=== PATIENT | male | born 1950 | race Caucasian/White ===

== ENCOUNTER 2018-07-30 13:00 | Oncology outpatient (ONC) | payer MEDICARE, OTHER, SELFPAY ==
--- NOTE | 2018-04-01 14:14 | ONC.NAV ---
Description: New Pt Intro Activity: Met briefly with pt/dtr prior to their initial ONC consult visit with Dr. Javed. Discussed resources and support available here at [facility], and provided my services card. Agreed to meet with pt again once he is back in the clinic for f/u.
[2018-04-01 15:21] VITALS: BP 126/66; PULSE 91; RESP 15; TEMP 37; O2SAT 98
--- NOTE | 2018-04-02 10:31 | ONC.GENERIC ---
Diagnosis (1) Malignant melanoma Diagnosis: 04/02/18 10:32 Mr. Alfredo is a very pleasant 67-year-old twice male from [place], [place]. He is accompanied today by his daughter Paulette and his 5-year-old son Obdulio. He has been referred by Dr. Brannon for postop triage of recently confirmed malignant melanoma, juxtaposition to the left parotid gland. 04/02/18 10:48 History of Present Illness History Of Present Illness: 04/02/18 10:49 This gentleman reports that his present illness began last fall, when he began to have some left ear difficulties. He was ultimately seen in triage by Dr. Marie, an ENT colleague, on 10/16/2017. The patient made note of ongoing tinnitus, left neck pain and intermittent headaches. Mass effect was perceived in the area of the left parotid gland. On 10/21/2017, the patient had a CT scan of his neck. It confirmed an enlarged lymph node, at the inferior aspect of the left parotid gland, measuring 14 x 15 x 23 mm in diameter. The following week, a FNA was attempted, but reportedly was nondiagnostic. On 12/31/2017, the patient was taken to the operating room by Drs. Brannon and Frank, for an excisional biopsy. Intraoperative findings reported a 2.5 cm irregular, solid mass abutting the left parotid tail. 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 On 01/09/2018, the patient was seen in formal consultation by Brianna Tello MD, an ENT oncologic surgeon at [facility]. The case was then presented at the [facility] Tumor Board. It was recommended that the patient undergo a left-sided superficial parotidectomy and left neck dissection. On 01/14/2018, the patient had a PET scan obtained, which showed very minimal FDG activity in the biopsy site. There was no other evidence of metastatic disease. On 03/10/2018, the patient was again taken to the operating room by Dr. Brannon, where the patient underwent a left superficial parotidectomy and left neck dissection. Final pathology revealed the parotid gland without pathologic alterations. Four periparotid lymph nodes were negative for metastatic melanoma. Fifteen level 2 left neck nodes were negative for metastatic disease. Thirteen level 3 left neck nodes were negative for metastatic disease. Postoperatively, the patient has noted some refractory xerostomia and left upper extremity weakness. He is referred today by Dr. Brannon for formal medical oncologic consultation. This gentleman's past medical history is pertinent for excision of melanoma in situ from his left ear (helix) on 08/12/2015. Home Medications and Allergies Home Medications Medication Instructions Recorded Confirmed Type glipizide 10 mg PO DAILY 04/01/18 04/01/18 History ibuprofen 200 mg PO Q6-8H PRN 04/01/18 04/01/18 History loperamide 2 mg PO Q2-4H PRN 04/01/18 04/01/18 History sitagliptin-metformin [Janumet] 1 tab PO BID 04/01/18 04/01/18 History terazosin 5 mg PO DAILY 04/01/18 04/01/18 History Allergies Allergy/AdvReac Type Severity Reaction Status Date / Time amoxicillin Allergy Mild Rash Verified 04/01/18 14:50 Penicillins Allergy Mild Rash Verified 04/01/18 14:50 Sulfa (Sulfonamide Allergy Mild Rash Verified 04/01/18 14:50 Antibiotics) Past History Past Medical History: Excision of melanoma in situ from the left ear on 08/12/2015. Diabetes mellitus, under good management. His serum glucose's normally run between 90 and 110. A recent hemoglobin A1c level was 7.2. Multiple skin cancers have been previously excised. Social History: Mr. Alfredo has been twice. He has 2 children with his current 48-year-old ; Paulette who is 24 and Obdulio who is 5. He has 3 other grown children from his 1st marriage. He served for 24 years in the [employer]. He is now retired. He lives with his family in [place], [place] Family History: The patient's father from heart attack at age 74. His mother of natural causes at age 90. Patient had 2 brothers and 2 sisters. One brother is from a stroke. A sister from liver disease. Review of Systems Review of Systems: 1. General. Recent diminution in both appetite and weight. He estimates a weight loss of about 10 lb. He denies any recent fever chills or night sweats. 2. HEENT. See present illness. This gentleman wears glasses. He reports difficulty with both chronic tinnitus and visual floaters. He has had xerostomia since his surgery. Cough or shortness of breath.. 3. Lungs. No recent complaints of cough or shortness of breath. 4. Heart. Unremarkable. 5. GI. Prior history of a gastric ulcer. No history of hepatitis or gallbladder disease. 6. . Unremarkable. 7. Rheumatologic. Minimal complaints. 8. Endocrine. Diabetes mellitus. No history of thyroid disease. 9. Skin. See present illness. 10. Neurologic. The patient has noted left arm and hand weakness since his surgery in March. Exam Vital Signs: Vital Signs - 24 hr 04/01/18 15:21 Temperature 98.6 F Pulse Rate 91 H Respiratory Rate 15 Blood Pressure 126/66 H Pulse Oximetry 98 Exam: Blood pressure 126/66. Temperature 98.6?. Pulse rate 91. O2 saturation on room air was 98%. Weight 191 lb. The pupils were equal and reactive to light. The oropharynx was clear. There was physical distortion of this gentleman's left helix. He had a long/vertical left-sided neck resection wound as well as a 2nd wound overlying his left parotid gland area. No pathologic lymphadenopathy was noted today in the right pre or postauricular area, right neck, submental, supraclavicular or axillary areas. Both lungs were clear to auscultation and percussion. There was no direct percussible spinal tenderness. There was no palpable rib cage tenderness. Heart sounds were fine. The abdomen was soft, nontender and without palpable organomegaly. There was no lower extremity edema. Skin examination showed no disconcerning lesions. 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 His tumor has been completely resected. His left neck dissection showed no evidence of further metastatic disease. Postoperatively, this gentleman is currently plagued with some residual xerostomia and left upper extremity weakness. I would note that his recent PET scan showed no evidence of metastatic disease elsewhere. I would note that these particular tumors generally have a lower metastatic potential compared with more conventional melanomas. I would like to procure a formal RT consultation with 1 of my colleagues in [place]. I will request follow-up in this clinic in 4 months.
--- NOTE | 2018-04-02 10:48 | P.CONONC_ITS ---
Diagnosis (1) Malignant melanoma Diagnosis: 04/02/18 10:32 Mr. Alfredo is a very pleasant 67-year-old twice male from [place], [place]. He is accompanied today by his daughter Paulette and his 5-year-old son Obdulio. He has been referred by Dr. Brannon for postop triage of recently confirmed malignant melanoma, juxtaposition to the left parotid gland. 04/02/18 10:48 History of Present Illness History Of Present Illness: 04/02/18 10:49 This gentleman reports that his present illness began last fall, when he began to have some left ear difficulties. He was ultimately seen in triage by Dr. Marie, an ENT colleague, on 10/16/2017. The patient made note of ongoing tinnitus, left neck pain and intermittent headaches. Mass effect was perceived in the area of the left parotid gland. On 10/21/2017, the patient had a CT scan of his neck. It confirmed an enlarged lymph node, at the inferior aspect of the left parotid gland, measuring 14 x 15 x 23 mm in diameter. The following week, a FNA was attempted, but reportedly was nondiagnostic. On 12/31/2017, the patient was taken to the operating room by Drs. Brannon and Frank, for an excisional biopsy. Intraoperative findings reported a 2.5 cm irregular, solid mass abutting the left parotid tail. 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 On 01/09/2018, the patient was seen in formal consultation by Brianna Tello MD, an ENT oncologic surgeon at [facility]. The case was then presented at the [facility] Tumor Board. It was recommended that the patient undergo a left-sided superficial parotidectomy and left neck dissection. On 01/14/2018, the patient had a PET scan obtained, which showed very minimal FDG activity in the biopsy site. There was no other evidence of metastatic disease. On 03/10/2018, the patient was again taken to the operating room by Dr. Brannon , where the patient underwent a left superficial parotidectomy and left neck dissection. Final pathology revealed the parotid gland without pathologic alterations. Four periparotid lymph nodes were negative for metastatic melanoma. Fifteen level 2 left neck nodes were negative for metastatic disease. Thirteen level 3 left neck nodes were negative for metastatic disease. Postoperatively, the patient has noted some refractory xerostomia and left upper extremity weakness. He is referred today by Dr. Brannon for formal medical oncologic consultation. This gentleman's past medical history is pertinent for excision of melanoma in situ from his left ear (helix) on 08/12/2015. Home Medications and Allergies Home Medications Medication Instructions Recorded Confirmed Type glipizide 10 mg PO DAILY 04/01/18 04/01/18 History ibuprofen 200 mg PO Q6-8H PRN 04/01/18 04/01/18 History loperamide 2 mg PO Q2-4H PRN 04/01/18 04/01/18 History sitagliptin-metformin [Janumet] 1 tab PO BID 04/01/18 04/01/18 History terazosin 5 mg PO DAILY 04/01/18 04/01/18 History Allergies Allergy/AdvReac Type Severity Reaction Status Date / Time amoxicillin Allergy Mild Rash Verified 04/01/18 14:50 Penicillins Allergy Mild Rash Verified 04/01/18 14:50 Sulfa (Sulfonamide Allergy Mild Rash Verified 04/01/18 14:50 Antibiotics) Past History Past Medical History: Excision of melanoma in situ from the left ear on 08/12/2015. Diabetes mellitus , under good management. His serum glucose's normally run between 90 and 110. A recent hemoglobin A1c level was 7.2. Multiple skin cancers have been previously excised. Social History: Mr. Alfredo has been twice. He has 2 children with his current 48- year-old ; Paulette who is 24 and Obdulio who is 5. He has 3 other grown children from his 1st marriage. He served for 24 years in the [employer]. He is now retired. He lives with his family in [place], [place] Family History: The patient's father from heart attack at age 74. His mother of natural causes at age 90. Patient had 2 brothers and 2 sisters. One brother is from a stroke. A sister from liver disease. Review of Systems Review of Systems: 1. General. Recent diminution in both appetite and weight. He estimates a weight loss of about 10 lb. He denies any recent fever chills or night sweats. 2. HEENT. See present illness. This gentleman wears glasses. He reports difficulty with both chronic tinnitus and visual floaters. He has had xerostomia since his surgery. Cough or shortness of breath.. 3. Lungs. No recent complaints of cough or shortness of breath. 4. Heart. Unremarkable. 5. GI. Prior history of a gastric ulcer. No history of hepatitis or gallbladder disease. 6. . Unremarkable. 7. Rheumatologic. Minimal complaints. 8. Endocrine. Diabetes mellitus. No history of thyroid disease. 9. Skin. See present illness. 10. Neurologic. The patient has noted left arm and hand weakness since his surgery in March. Exam Vital Signs: Vital Signs - 24 hr 04/01/18 15:21 Temperature 98.6 F Pulse Rate 91 H Respiratory Rate 15 Blood Pressure 126/66 H Pulse Oximetry 98 Exam: Blood pressure 126/66. Temperature 98.6?. Pulse rate 91. O2 saturation on room air was 98%. Weight 191 lb. The pupils were equal and reactive to light. The oropharynx was clear. There was physical distortion of this gentleman's left helix. He had a long/vertical left-sided neck resection wound as well as a 2nd wound overlying his left parotid gland area. No pathologic lymphadenopathy was noted today in the right pre or postauricular area, right neck, submental, supraclavicular or axillary areas. Both lungs were clear to auscultation and percussion. There was no direct percussible spinal tenderness. There was no palpable rib cage tenderness. Heart sounds were fine. The abdomen was soft, nontender and without palpable organomegaly. There was no lower extremity edema. Skin examination showed no disconcerning lesions. 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 His tumor has been completely resected. His left neck dissection showed no evidence of further metastatic disease. Postoperatively, this gentleman is currently plagued with some residual xerostomia and left upper extremity weakness. I would note that his recent PET scan showed no evidence of metastatic disease elsewhere. I would note that these particular tumors generally have a lower metastatic potential compared with more conventional melanomas. I would like to procure a formal RT consultation with 1 of my colleagues in [place]. I will request follow-up in this clinic in 4 months.
[2018-07-30 13:17] VITALS: BP 131/66; PULSE 91; RESP 16; TEMP 36.7; O2SAT 97
--- NOTE | 2018-07-30 13:27 | ONC.PN ---
PN -Subjective Interval history: Diagnosis: Melanoma with lymph node metastasis. Previous treatment: 1. Melanoma in situ involving the left ear that was excised in 2014. 2. Lymph node in the parotid the area excised in January 2008. 3. Superficial parotidectomy with lymph node dissection in March 2018 with no residual cancer seen. Interval history: The patient is a 68-year-old man who returns today for follow-up of melanoma. Since his last visit here, he has been feeling quite well. He has no specific complaints today. He has not noted any adenopathy. He denies any new aches or pains. He has had some trouble with his shoulder since his surgery and has been working with physical therapy. It seems to be improving. He denies any shortness of breath or cough. He previously had trouble with abdominal pain and diarrhea but not recently. He denies any other changes in his health. 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 Social history: He is . He does not [employer] he is retired from the . - Patient Self-Reported Symptoms SR ears, nose, mouth, throat issues: Ears ringing SR Musculoskeletal issues: Joint pain or swelling Home Medications and Allergies Home Medications Medication Instructions Recorded Confirmed Type glipizide 10 mg PO DAILY 04/01/18 04/01/18 History ibuprofen 200 mg PO Q6-8H PRN 04/01/18 04/01/18 History loperamide 2 mg PO Q2-4H PRN 04/01/18 04/01/18 History sitagliptin-metformin [Janumet] 1 tab PO BID 04/01/18 04/01/18 History terazosin 5 mg PO DAILY 04/01/18 04/01/18 History calcium carbonate [Calcium 600] 07/30/18 History cholecalciferol (vitamin D3) 1,000 unit PO DAILY 07/30/18 07/30/18 History [Vitamin D3] vitamin B complex 1 tab PO DAILY 07/30/18 07/30/18 History Allergies Allergy/AdvReac Type Severity Reaction Status Date / Time amoxicillin Allergy Mild Rash Verified 04/01/18 14:50 Penicillins Allergy Mild Rash Verified 04/01/18 14:50 Sulfa (Sulfonamide Allergy Mild Rash Verified 04/01/18 14:50 Antibiotics) Exam - Constitutional positive no acute distress, positive average body habitus - Routine HEENT Exam Head: Present: normocephalic, atraumatic Eye: Present: EOMI, PERRL. Absent: conjunctival icterus, scleral injection ENT: Present: mucous membranes moist, oropharynx clear Comments: I his postoperative changes on the left ear is no adenopathy or masses. - Routine Neck Exam Present: supple. Absent: lymphadenopathy, thyromegaly - Routine Respiratory Exam Present: Clear to auscultation bilaterally. Absent: rales, wheezes - Routine Cardiovascular Exam Present: RRR, S1, S2. Absent: murmur - Routine Abdominal Exam Present: soft, normoactive bowel sounds. Absent: tenderness, organomegaly, mass - Routine Extremities Exam Absent: cyanosis, clubbing, edema - Routine Back/Spine Exam Back/Spine: Absent: paraspinal tenderness, vertebral tenderness - Routine Skin Exam Present: intact. Absent: petechiae, rash - Routine Neurological Exam Present: alert, oriented X3 - Routine Psychiatric Exam Present: normal affect, normal thought process Assessment and Plan (1) Malignant melanoma Current visit: Yes Status: Acute 68-year-old man with a history of melanoma with lymph node involvement. His recent PET-CT is reassuring. He has no evidence of disease at this time. He will return to clinic here in about 3 months for follow-up. He will follow up with radiation oncology in about 6 months.
--- NOTE | 2018-09-02 15:45 | ONC.SCHED ---
PATIENT CAME TO THE COUNTER ASKED FOR A COPY OF [facility]. HE SHOWED HIS ID AND I GAVE IT TO HIM.
== END 2018-08-14 13:18 ==
PROVIDERS: PCP Internal Medicine; Visit Provider Internal Medicine Hematology & Oncology
DX: Z08 Encounter for follow-up examination after completed treatment for malignant neoplasm (principal); Z85.820 Personal history of malignant melanoma of skin
CPT/HCPCS: 99205; 99214; 99215

== ENCOUNTER → 2018-10-16 09:55 | Outpatient (CLI) | payer MEDICARE, OTHER, SELFPAY ==
[2018-10-16 10:41] LABS: Add Manual Diff / Slide Review NO; Basophils Percent Auto 0.4 % (0-2); Eosinophils Percent Auto 2.1 % (2-4); Hematocrit 40.8 % (41-53); Hemoglobin 13.6 g/dL (13.5-17.5); Lymphocytes Percent Auto 16.2 % (25-40); Mean Corpuscular HGB Conc 33.4 % (30-36); Mean Corpuscular Hemoglobin 30.4 PG (26-34); Mean Corpuscular Volume 90.9 fL (80-100); Monocytes Percent Auto 7.9 % (3-14); Neutrophils Absolute Auto 5900 /uL (1500-7000); Neutrophils Percent Auto 73.4 % (50-75); Platelet Count 237 X10^3/uL (150-400); Red Blood Cell Count 4.49 X10^6/uL (4.5-5.9); Red Cell Distribution Width 13.5 % (11.6-14.8)
[2018-10-16 11:07] LABS: Alanine Aminotransferase 39 IU/L (21-72); Albumin 4.1 g/dL (3.5-5.0); Albumin Globulin Ratio 1.7 (1.0-2.8); Alkaline Phosphatase 64 U/L (38-126); Aspartate Aminotransferase 27 IU/L (17-59); Bilirubin Total 0.6 mg/dL (0.2-1.3); Blood Urea Nitrogen 16 mg/dL (9-20); Calcium 9.3 mg/dL (8.4-10.2); Carbon Dioxide 24 mmol/L (22-32); Chloride 106 mmol/L (98-107); Globulin 2.4 g/dL (1.7-4.1); Glucose 148 mg/dL (80-110); HEMOLYSIS < 15 (0-50); Potassium 4.6 mmol/L (3.4-5.1); Sodium 142 mmol/L (137-145); Total Protein 6.5 g/dL (6.3-8.2)
[2018-10-16 11:22] LABS: BUN Creatinine Ratio 17.8 (6-22); Estimated Glomerular Filt Rate > 60.0 mL/min (>60)
[2018-10-16 11:33] LABS: Lactate Dehydrogenase 382 U/L (313-618)
== END ==
PROVIDERS: Family Provider Internal Medicine; PCP Internal Medicine
DX: C43.9 Malignant melanoma of skin, unspecified (principal)
CPT/HCPCS: 36415; 80053; 83615; 85025

== ENCOUNTER → 2018-12-20 09:14 | Outpatient (CLI) | payer MEDICARE, OTHER, SELFPAY ==
[2018-12-20 09:51] LABS: Estimated Glomerular Filt Rate > 60.0 mL/min (>60)
== END ==
PROVIDERS: Family Provider Internal Medicine; PCP Internal Medicine; Visit Provider Radiology Radiation Oncology
DX: C79.9 Secondary malignant neoplasm of unspecified site (principal)
CPT/HCPCS: 36415; 82565

== ENCOUNTER → 2019-05-08 08:19 | Outpatient (CLI) | payer MEDICARE, OTHER, SELFPAY ==
--- NOTE | 2019-05-08 | DI.MRI.S_ITS ---
PROCEDURE: MR HEAD/BRAIN WO/W CON INDICATIONS: Malignant melanoma of skin, unspecified TECHNIQUE: Noncontrast axial T1 spin echo, axial T2 fast spin echo, sagittal and axial FLAIR, coronal T2 fast spin echo, axial gradient echo, axial diffusion and ADC through the brain. After the administration of contrast, axial and coronal T1 spin echo with fat saturation through the brain. COMPARISON: None. FINDINGS: Image quality: Excellent. CSF spaces: Basal cisterns are patent. No extra-axial fluid collections. Ventricles are normal in size and shape. Brain: No midline shift. No intracranial bleeds or masses. No abnormal intracranial enhancement. There is cerebral volume loss for age. There is periventricular white matter chronic small vessel ischemic change. The brainstem appears normal. Diffusion-weighted images demonstrate no acute ischemic insults. No chronic ischemic insults. Normal intravascular flow voids are present. Skull and face: Calvarial marrow is normal in signal. Orbits appear normal. Sinuses: Sinuses and mastoids appear clear. IMPRESSION: No evidence of intracranial metastatic disease. Dictated by: Venkat Diana M.D. on 05/08/2019 at 9:14 Approved by: Venkat Diana M.D. on 05/08/2019 at 9:18
== END ==
PROVIDERS: Family Provider Internal Medicine; PCP Internal Medicine
DX: C43.9 Malignant melanoma of skin, unspecified (principal); R51 Headache; R42 Dizziness and giddiness
CPT/HCPCS: 70553

== ENCOUNTER → 2020-03-17 07:42 | Outpatient (CLI) | payer MEDICARE, OTHER, SELFPAY ==
[2020-03-17 08:19] LABS: Add Manual Diff / Slide Review NO; Basophils Absolute Auto 100 /uL (0-100); Basophils Percent Auto 0.7 % (0-2); Eosinophils Absolute Auto 200 /uL (0-450); Eosinophils Percent Auto 1.9 % (2-4); Hematocrit 40.9 % (41-53); Hemoglobin 13.6 g/dL (13.5-17.5); Lymphocytes Absolute Auto 1400 /uL (1100-4500); Lymphocytes Percent Auto 16.1 % (25-40); Mean Corpuscular HGB Conc 33.2 % (30-36); Mean Corpuscular Hemoglobin 29.8 PG (26-34); Mean Corpuscular Volume 89.6 fL (80-100); Monocytes Absolute Auto 700 /uL (0-900); Monocytes Percent Auto 7.3 % (3-14); Neutrophils Absolute Auto 6600 /uL (1500-7000); Platelet Count 216 X10^3/uL (150-400); Red Blood Cell Count 4.56 X10^6/uL (4.5-5.9); Red Cell Distribution Width 13.3 % (11.6-14.8)
[2020-03-17 08:31] LABS: Alanine Aminotransferase 23 IU/L (<50); Albumin 4.2 g/dL (3.5-5.0); Albumin Globulin Ratio 1.5 (1.0-2.8); Alkaline Phosphatase 66 U/L (38-126); Aspartate Aminotransferase 27 IU/L (17-59); Bilirubin Total 0.7 mg/dL (0.2-1.3); Blood Urea Nitrogen 16 mg/dL (9-20); Calcium 9.1 mg/dL (8.4-10.2); Carbon Dioxide 23 mmol/L (22-32); Chloride 107 mmol/L (98-107); Estimated Glomerular Filt Rate > 60.0 mL/min (>60); Globulin 2.8 g/dL (1.7-4.1); Glucose 188 mg/dL (80-110); HEMOLYSIS < 15 (0-50); Lactate Dehydrogenase 352 U/L (313-618); Potassium 4.3 mmol/L (3.4-5.1); Sodium 139 mmol/L (137-145)
== END ==
PROVIDERS: Family Provider Internal Medicine; PCP Internal Medicine; Referring Provider Internal Medicine Hematology & Oncology; Visit Provider Internal Medicine Hematology & Oncology
DX: C43.9 Malignant melanoma of skin, unspecified (principal)
CPT/HCPCS: 36415; 80053; 83615; 85025

== ENCOUNTER → 2020-07-04 09:39 | Outpatient (CLI) | payer MEDICARE, OTHER, SELFPAY ==
--- NOTE | 2020-07-04 09:41 | DI.MRI.S_ITS ---
PROCEDURE: MR HEAD/BRAIN WO/W CON INDICATIONS: History melanoma, headache, anorexia, weight loss TECHNIQUE: Noncontrast axial T1 spin echo, axial T2 fast spin echo, sagittal and axial FLAIR, coronal T2 fast spin echo, axial gradient echo, axial diffusion and ADC through the brain. After the administration of contrast, axial and coronal T1 spin echo with fat saturation through the brain. COMPARISON: [facility], MR, MR HEAD/BRAIN WO/W CON, 05/08/2019, 8:39. FINDINGS: Image quality: Excellent. CSF spaces: Basal cisterns are patent. No extra-axial fluid collections. Ventricles are normal in size and shape. Brain: No midline shift. No intracranial bleeds or masses. No abnormal intracranial enhancement. There is mild cerebral volume loss for age. There is minimal periventricular white matter chronic small vessel ischemic change. The brainstem appears normal. Diffusion-weighted images demonstrate no acute ischemic insults. No chronic ischemic insults. Normal intravascular flow voids are present. Skull and face: Calvarial marrow is normal in signal. Orbits appear normal. Sinuses: Sinuses and mastoids appear clear. IMPRESSION: 1. Mild volume loss. Minimal small vessel ischemic disease. 2. No evidence of metastatic disease. 3. No acute process. No recent infarct. Dictated by: Domingo Morrissey M.D. on 07/04/2020 at 10:44 Approved by: Domingo Morrissey M.D. on 07/04/2020 at 10:46
--- NOTE | 2020-07-04 11:35 | DI.CT.S_ITS ---
PROCEDURE: CT SOFT TISSUE NECK W CON INDICATIONS: Melanoma, headache, anorexia, weight loss TECHNIQUE: After the administration of intravenous contrast, 3.0 mm axial sections acquired from the sella to the aortic arch. Additional oblique axial 3.0 mm sections acquired through the pharynx. 3 mm thick coronal and sagittal reformats were generated. For radiation dose reduction, the following was used: automated exposure control. COMPARISON: [facility], CT, SOFT TISSUE NECK W CONTRAST, 10/21/2017, 10:28. FINDINGS: Image quality: Excellent. Lymph nodes: No enlarged lymph nodes seen throughout the neck. A previously described lymph node seen on the prior study from 10/21/17 no longer visualized. There are left sided surgical clips. Vessels: Visualized vasculature appears patent. Neck spaces: The oropharynx, nasopharynx, and pharynx demonstrate no mucosal lesions. The vocal cords, false vocal cords, pyriform sinuses, epiglottis, vallecula, and tongue base all appear normal. Extramucosal spaces appear unremarkable. Glands: The parotid and submandibular glands appear normal. Thyroid gland negative . Miscellaneous: Visualized brain and orbits appear normal. Lung apices appear clear. Superficial soft tissues appear normal. Bones: No vertebral body compression fracture. Spondylytic changes and facet arthropathy. IMPRESSION: No definite pathologically enlarged lymphadenopathy Dictated by: Venkat Diana M.D. on 07/04/2020 at 12:20 Approved by: Venkat Diana M.D. on 07/04/2020 at 12:27
--- NOTE | 2020-07-04 11:35 | DI.CT.S_ITS ---
PROCEDURE: CT CHEST ABD PEL W CON INDICATIONS: Melanoma, headache, anorexia, weight loss TECHNIQUE: After the administration of oral and intravenous contrast, 5 mm thick sections acquired from the lung apices to the symphysis. 5 mm coronal and sagittal reformats were performed, with additional 7 mm coronal MIP reformats through the lungs. For radiation dose reduction, the following was used: automated exposure control, adjustment of mA and/or kV according to patient size. COMPARISON: None. FINDINGS: Image quality: Excellent. CHEST: Lungs and pleura: No acute airspace opacities. No pleural effusions or pneumothorax. Central and peripheral airways appear patent and normal in caliber. Mediastinum: Heart size is normal. No pericardial effusion. No mediastinal or hilar adenopathy by size criteria. Thoracic aorta and central pulmonary arteries are normal in size. Esophagus is normal in caliber. No hiatal hernia. Chest wall: No axillary or supraclavicular adenopathy by size criteria. Thyroid gland appears normal . ABDOMEN: Solid organs: Liver is normal in size and enhancement. Gallbladder appears normal. Biliary system is non dilated. Pancreas enhances normally. Spleen is normal in size and enhancement. No adrenal nodules. Kidneys demonstrate normal size and enhancement, without hydronephrosis. Note is made of a small renal cortical cyst at the posterior lower 3rd of the left kidney, an in this same area there are 2 adjacent 2 mm collecting system calculi which are nonobstructive. Peritoneum and bowel: Bowel loops demonstrate normal wall thickness and caliber. No free fluid or air. Nodes and vessels: No retroperitoneal or mesenteric adenopathy by size criteria. Aorta and inferior vena cava are normal in size. Miscellaneous: No ventral hernias. PELVIS: Genitourinary: Bladder wall thickness is normal. Miscellaneous: No inguinal hernias or adenopathy. Bones: No suspicious bony lesions. Several small Schmorl's nodes are present at the lumbosacral and low thoracic vertebral endplates, but no osteolytic or blastic bone lesion is found that would indicate presence of metastatic disease. A small bone cyst is present at the anterior medullary space of the left hip, sharply demarcated and measuring only 9 mm in diameter. No vertebral body compression fractures. IMPRESSION: No evidence of metastatic disease found over the visualized chest, abdomen and pelvis. Several degenerative small Schmorl's nodes are present abutting the endplates of the low thoracic and lumbosacral spine, not representing evidence of metastatic disease. Dictated by: Geronimo Moore M.D. on 07/04/2020 at 15:24 Approved by: Geronimo Moore M.D. on 07/04/2020 at 15:46
== END ==
PROVIDERS: Family Provider Internal Medicine; PCP Internal Medicine; Referring Provider Internal Medicine; Visit Provider Internal Medicine
DX: Z08 Encounter for follow-up examination after completed treatment for malignant neoplasm; Z85.820 Personal history of malignant melanoma of skin; R51 Headache; R63.0 Anorexia; R63.4 Abnormal weight loss; M51.44 Schmorl's nodes, thoracic region; M51.47 Schmorl's nodes, lumbosacral region
CPT/HCPCS: 70491; 70553; 71260; 74177; Q9967

== ENCOUNTER → 2021-02-25 08:23 | Outpatient (CLI) | payer MEDICARE, OTHER, SELFPAY ==
[2021-02-25 09:21] LABS: Hematocrit 42.4 % (41-53); Hemoglobin 14.1 g/dL (13.5-17.5); Mean Corpuscular HGB Conc 33.2 % (30-36); Mean Corpuscular Hemoglobin 30.4 PG (26-34); Mean Corpuscular Volume 91.5 fL (80-100); Platelet Count 211 X10^3/uL (150-400); Red Blood Cell Count 4.64 X10^6/uL (4.5-5.9); Red Cell Distribution Width 13.5 % (11.6-14.8)
[2021-02-25 09:33] LABS: Alanine Aminotransferase 20 IU/L (<50); Albumin Globulin Ratio 1.7 (1.0-2.8); Alkaline Phosphatase 67 U/L (38-126); Aspartate Aminotransferase 22 IU/L (17-59); Bilirubin Total 0.4 mg/dL (0.2-1.3); Blood Urea Nitrogen 16 mg/dL (9-20); Calcium 8.8 mg/dL (8.4-10.2); Carbon Dioxide 25 mmol/L (22-32); Chloride 107 mmol/L (98-107); Cholesterol 102 mg/dL (140-199); Estimated Glomerular Filt Rate > 60.0 mL/min (>60); Globulin 2.3 g/dL (1.7-4.1); Glucose 198 mg/dL (80-110); HDL Cholesterol 35 mg/dL (40-60); HEMOLYSIS < 15 (0-50); LDL Cholesterol Calculated 32 mg/dL (<100); Potassium 4.2 mmol/L (3.4-5.1); Sodium 141 mmol/L (137-145); Total Protein 6.3 g/dL (6.3-8.2); Triglycerides 174 mg/dL (35-150)
[2021-02-25 09:37] LABS: Hemoglobin A1C% w Est Avg Glu 8.9 % (4.0-6.0)
[2021-02-25 10:03] LABS: TSH w/ Reflex to FT4 0.46 uIU/mL (0.47-4.68)
[2021-02-25 11:58] LABS: Creatinine Urine Random 66.3 mg/dL
[2021-02-25 12:03] LABS: Microalbumin Urine Random < 0.6 mg/dL (0-1.6)
== END ==
PROVIDERS: Family Provider Internal Medicine; PCP Registered Nurse Diabetes Educator; Referring Provider Registered Nurse Diabetes Educator; Visit Provider Registered Nurse Diabetes Educator
DX: E11.9 Type 2 diabetes mellitus without complications (principal); I10 Essential (primary) hypertension
CPT/HCPCS: 36415; 80053; 80061; 82043; 82570; 83036; 84439; 84443; 85027

== ENCOUNTER → 2021-04-29 08:26 | Outpatient (CLI) | payer MEDICARE, OTHER, SELFPAY ==
[2021-04-29 10:55] LABS: Hemoglobin A1C% w Est Avg Glu 8.4 % (4.0-6.0)
[2021-04-29 11:16] LABS: TSH w/ Reflex to FT4 0.47 uIU/mL (0.47-4.68)
== END ==
PROVIDERS: Family Provider Internal Medicine; PCP Registered Nurse Diabetes Educator; Referring Provider Registered Nurse Diabetes Educator; Visit Provider Registered Nurse Diabetes Educator
DX: E11.65 Type 2 diabetes mellitus with hyperglycemia (principal); R79.89 Other specified abnormal findings of blood chemistry; C43.9 Malignant melanoma of skin, unspecified
CPT/HCPCS: 36415; 83036; 84443

== ENCOUNTER → 2022-03-14 15:27 | Outpatient (CLI) | payer MEDICARE, OTHER, SELFPAY ==
[2022-03-14 15:43] LABS: Add Manual Diff / Slide Review NO; Basophils Absolute Auto 100 /uL (0-100); Basophils Percent Auto 0.8 % (0-2); Eosinophils Absolute Auto 100 /uL (0-450); Eosinophils Percent Auto 1.6 % (2-4); Hematocrit 39.3 % (41-53); Lymphocytes Absolute Auto 1400 /uL (1100-4500); Lymphocytes Percent Auto 18.5 % (25-40); Mean Corpuscular HGB Conc 33.1 % (30-36); Mean Corpuscular Hemoglobin 29.6 PG (26-34); Mean Corpuscular Volume 89.2 fL (80-100); Monocytes Absolute Auto 700 /uL (0-900); Neutrophils Absolute Auto 5300 /uL (1500-7000); Neutrophils Percent Auto 70.1 % (50-75); Platelet Count 240 X10^3/uL (150-400); Red Blood Cell Count 4.41 X10^6/uL (4.5-5.9); Red Cell Distribution Width 13.2 % (11.6-14.8); White Blood Cell Count 7.5 X10^3/uL (4.5-11.0)
[2022-03-14 15:56] LABS: Alanine Aminotransferase 22 IU/L (<50); Albumin 4.1 g/dL (3.5-5.0); Albumin Globulin Ratio 1.7 (1.0-2.8); Alkaline Phosphatase 74 U/L (38-126); Aspartate Aminotransferase 26 IU/L (17-59); BUN Creatinine Ratio 22.6 (6-22); Bilirubin Total 0.5 mg/dL (0.2-1.3); Blood Urea Nitrogen 19 mg/dL (9-20); Calcium 8.7 mg/dL (8.4-10.2); Carbon Dioxide 24 mmol/L (22-32); Chloride 104 mmol/L (98-107); Estimated Glomerular Filt Rate > 60 mL/min (>60); Globulin 2.4 g/dL (1.7-4.1); Glucose 415 mg/dL (80-110); HEMOLYSIS < 15 (0-50); Lactate Dehydrogenase 309 U/L (313-618); Potassium 4.3 mmol/L (3.4-5.1); Sodium 135 mmol/L (137-145); Total Protein 6.5 g/dL (6.3-8.2)
== END ==
PROVIDERS: Family Provider Internal Medicine; PCP Registered Nurse Diabetes Educator; Referring Provider Internal Medicine Medical Oncology; Visit Provider Internal Medicine Medical Oncology
DX: C43.9 Malignant melanoma of skin, unspecified (principal)
CPT/HCPCS: 36415; 80053; 83615; 85025

== ENCOUNTER → 2022-08-03 09:09 | Outpatient (CLI) | payer MEDICARE, OTHER, SELFPAY ==
--- NOTE | 2022-08-03 | DI.MRI.S_ITS ---
PROCEDURE: MR HEAD/BRAIN WO/W CON INDICATIONS: Symptoms and signs involving cognitive function TECHNIQUE: Noncontrast axial T1 spin echo, axial T2 fast spin echo, sagittal and axial FLAIR, coronal T2 fast spin echo, axial gradient echo, axial diffusion and ADC through the brain. After the administration of contrast, axial and coronal and sagittal 3D VIBE or T1 spin echo with fat saturation through the brain. COMPARISON: Located Within [facility], , MR HEAD/BRAIN WO/W CON, 07/04/2020, 10:00. FINDINGS: Image quality: Excellent. CSF Spaces: Basal cisterns are patent. No extra-axial fluid collections. Ventricles are normal in size and shape. Brain: No midline shift. No intracranial bleeds or masses. Minimal volume loss. No abnormal intracranial enhancement. The brainstem appears normal. Diffusion-weighted images demonstrate no acute ischemic insults. No chronic ischemic insults. Normal intravascular flow voids are present. Skull and face: Calvarial marrow is normal in signal. Orbits appear normal. Sinuses: Sinuses and mastoids appear clear. IMPRESSION: 1. No acute or significant intracranial abnormality. 2. No evidence of metastatic disease. Dictated by: Haseeb Barrientos M.D. on 08/03/2022 at 11:21 Approved by: Haseeb Barrientos M.D. on 08/03/2022 at 11:29
== END ==
PROVIDERS: Family Provider Internal Medicine; Referring Provider Psychiatry & Neurology Neurology; Visit Provider Psychiatry & Neurology Neurology
DX: R41.89 Other symptoms and signs involving cognitive functions and awareness (principal); R27.0 Ataxia, unspecified
CPT/HCPCS: 70553